=== PATIENT | female | born 1980 ===

== ENCOUNTER 2017-02-22 11:11 | Outpatient (CLI) | payer OTHER, MEDICAID | END 2017-02-22 11:12 | disposition home or self-care (01) | LOC: NC 11:11 | PROVIDERS: ATTEND Obstetrics & Gynecology | DX: O24.410 Gestational diabetes mellitus in pregnancy, diet controlled (principal); Z71.3 Dietary counseling and surveillance; Z68.41 Body mass index [BMI] 40.0-44.9, adult; Z3A.17 17 weeks gestation of pregnancy; O99.212 Obesity complicating pregnancy, second trimester ==